=== PATIENT | female | born 1965 | race Caucasian/White ===

== ENCOUNTER → 2018-01-25 11:49 | Outpatient (REF) | payer OTHER, SELFPAY ==
[2018-01-25 14:35] LABS: Basophils # 0.1 K/mm3 (0-0.2); Basophils % 0.7 % (0.1-2.0); Eosinophils # 0.2 K/mm3 (0.0-0.4); Eosinophils % 2.4 % (0.1-12.0); Hemoglobin 12.2 g/dL (12.2-16.2); Lymphocytes # 2.9 K/mm3 (0.7-4.5); Lymphocytes % 44.7 K/mm3 (10-50); Mean Corpuscular HGB Conc 32.2 g/dL (31.8-35.4); Mean Corpuscular Hemoglobin 29.2 pg (27.0-31.2); Mean Corpuscular Volume 90.7 fl (81-99); Mean Platelet Volume 7.8 fl (7.4-10.4); Monocytes # 0.3 K/mm3 (0.1-1.0); Neutrophils # 3.1 K/mm3 (1.8-7.8); Neutrophils % 47.3 % (37.0-80.0); Platelet Count 354 K/mm3 (142-424); Red Blood Count 4.19 M/mm3 (4.20-5.40); Red Cell Distribution Width 12.6 % (11.5-17.5); White Blood Count 6.6 K/mm3 (4.8-10.8)
[2018-01-25 15:20] LABS: Alanine Aminotransferase 25 U/L (12-78); Albumin Level 3.6 gm/dL (3.4-5.0); Albumin/Globulin Ratio 0.9 (1.1-1.8); Alkaline Phosphatase 82 U/L (46-116); Aspartate Amino Transferase 17 U/L (15-37); Bilirubin,Total 0.4 mg/dL (0.2-1.0); Blood Urea Nitrogen 9 mg/dL (7-18); Calcium 8.8 mg/dL (8.5-10.1); Carbon Dioxide 29 mmol/L (21.0-32.0); Chloride 104 mmol/L (98-107); Chol/HDL Ratio 2.8 (1-3.5); Cholesterol 204 mg/dL (140-200); Creatinine,Serum 0.66 mg/dL (0.55-1.02); Estimated Glomerular Filt Rate 94 ml/min (>60); GFR (African American) 114 ML/MIN (>60); Globulin 3.8 gm/dl (1.3-3.2); Glucose 98 mg/dL (74-106); HDL Cholesterol 72 mg/dL (29-89); LDL Cholesterol 118 mg/dL (0-130); Sodium 139 mmol/L (136-145); T4 (Thyroxine) 8.6 ug/dl (4.7-13.3); Thyroid Stimulating Hormone 1.77 uIU/ml (0.358-3.740); Total Protein,Serum 7.4 gm/dL (6.4-8.2); Triglycerides 69 mg/dL (30-200); VLDL Cholesterol 14 mg/dL (0-40)
[2018-01-26 10:17] LABS: Vitamin D 25 Hydroxy 42.6 ng/mL (30.0-100.0)
== END ==
LOC: LAB 11:49
PROVIDERS: PCP Nurse Practitioner Family; Visit Provider Nurse Practitioner Family
DX: I10 Essential (primary) hypertension (principal); R53.83 Other fatigue
CPT/HCPCS: 80053; 80061; 82652; 84436; 84443; 85025

== ENCOUNTER → 2018-02-01 16:01 | Outpatient (CLI) | payer OTHER, SELFPAY ==
--- NOTE | 2018-02-01 16:05 | XR_ITS ---
EXAM: XR cervical spine 5V HISTORY: ITS.REASON: neck pain ORDERING PHYSICIAN: MYKE Charles PATIENT AGE: 52 years COMPARISON: None FINDINGS: Normal alignment. No fracture or dislocation. No lytic or blastic change. No significant degenerative change. The disc spaces are preserved. The neural foramina are widely patent. No cervical rib. There is mild head tilt toward the right on the frontal view IMPRESSION: Mild head tilt toward the right on the frontal view nonspecific and may be due to position or could be due to some mild muscle spasm Otherwise negative cervical spine
== END ==
PROVIDERS: PCP Nurse Practitioner Family; Visit Provider Physician Assistant
DX: M54.2 Cervicalgia (principal); M79.601 Pain in right arm; M79.602 Pain in left arm
CPT/HCPCS: 72050

== ENCOUNTER → 2018-02-08 08:13 | Outpatient (CLI) | payer OTHER, SELFPAY ==
--- NOTE | 2018-02-08 08:15 | CA_ITS ---
PROCEDURE: 2-D M-mode and color Doppler study INDICATIONS FOR THE TEST: Chest pain+ COPD Heart Murmur Tobacco Smoking Palpitations+ Fatigue+ Syncope Edema+ Hypertension+Diabetes Mellitus Rheumatic Fever SOB+ORTIZ Obesity Hyperlipidemia Family History HD+ Additional History PATIENT INFORMATION HEIGHT: 63 WEIGHT: 149 GENDER: Female B/P: 149/88 2-D/M-MODE INTERPRETATION: 2-D MEASUREMENTS OBSERVED VALUES IN CMS Right Ventricular Dimension (RVDd) 2.8 Interventricular Septum (Thickness)(IVsd) 0.8 Left Ventricular Internal Dimensions(LVIDd) 4.2 Left Ventricular Posterior Wall (Thickness)(LVPWd) 0.8 Aortic Root 2.9 Aortic Cusp Separation 2.1 Left Atrial Dimensions (LAD) 3.4 2D 1. Left atrium is mildly enlarged, left ventricle is normal size, mild concentric left ventricular hypertrophy, visually estimated ejection fraction 55% with no regional wall motion abnormality. 2. The right atrium and right ventricle are normal size and contractility. 3. The aortic valve is minimally thickened fibrosed. 4. The mitral and tricuspid valvular grossly normal. 5. The pulmonic valve is poorly visualized. 6. No significant pericardial effusion noted. DOPPLER INTERROGATION: Doppler interrogation of the aortic, mitral and tricuspid valvular presence of mild mitral and tricuspid regurgitation, tricuspid regurgitant jet velocity is inadequate for calculation of the right ventricular systolic pressure, grade 1 diastolic dysfunction seen with tissue Doppler evidence of raised left atrial pressure. CONCLUSION: 1. Mildly enlarged left atrium, normal left ventricular size, mild concentric left ventricular hypertrophy, visually estimated ejection fraction 55% with no regional wall motion abnormality, grade 1 diastolic dysfunction seen with tissue Doppler evidence of raised left atrial pressure. 2. Mild mitral and tricuspid regurgitation 3. No significant pericardial effusion noted.
== END ==
PROVIDERS: PCP Emergency Medicine; Visit Provider Internal Medicine
DX: I20.8 Other forms of angina pectoris (principal); R06.09 Other forms of dyspnea; Z82.49 Family history of ischemic heart disease and other diseases of the circulatory system
CPT/HCPCS: 93017; 93306

== ENCOUNTER → 2018-06-08 12:58 | Outpatient (CLI) | payer OTHER, SELFPAY ==
--- NOTE | 2018-06-08 13:00 | NVE_ITS ---
Venous Exam Indications: 729.81 Swelling of limb. 729.5 Pain in limb. IMPRESSIONS 1. There is no evidence of significant Reflux. 2. No evidence of deep or superficial vein thrombosis involving the right lower extremity Right lower extremity venous duplex evaluation. Doppler flow study including spectral analysis, color and membreno scale imaging. Location: Vascular laboratory. Patient status: Outpatient. Tables: Venous flow and imaging: + +-------+ + Location Overall Flow properties + +-------+ + Right common femoral Patent Normal phasicity; spontaneous; normal augmentation; compressible + +-------+ + Right saphenofemoral junction Patent Compressible + +-------+ + Right profunda femoral Patent Compressible + +-------+ + Right femoral Patent Normal phasicity; spontaneous; normal augmentation; compressible + +-------+ + Right greater saphenous Patent Normal phasicity; spontaneous; normal augmentation; compressible + +-------+ + Right popliteal Patent Normal phasicity; spontaneous; normal augmentation; compressible + +-------+ + Right posterior tibial Patent Compressible + +-------+ + Right peroneal Patent Compressible + +-------+ + Right gastrocnemius Patent Compressible + +-------+ + Right soleal Patent Compressible + +-------+ + (Report amended ) Electronically signed by: Elver Patton [id number]
== END ==
PROVIDERS: PCP Nurse Practitioner Family; Visit Provider Nurse Practitioner Family
DX: M79.89 Other specified soft tissue disorders (principal); M79.661 Pain in right lower leg
CPT/HCPCS: 93971

== ENCOUNTER → 2018-12-01 10:16 | Outpatient (CLI) | payer OTHER, SELFPAY ==
[2018-12-01 10:36] LABS: Basophils # 0.1 K/mm3 (0-0.2); Basophils % 0.7 % (0.1-2.0); Eosinophils # 0.2 K/mm3 (0.0-0.4); Eosinophils % 2.9 % (0.1-12.0); Hematocrit 40.4 % (37.0-47.0); Lymphocytes # 3.3 K/mm3 (0.7-4.5); Lymphocytes % 49.1 % (10-50); Mean Corpuscular HGB Conc 32.2 g/dL (31.8-35.4); Mean Corpuscular Hemoglobin 29.6 pg (27.0-31.2); Mean Corpuscular Volume 91.7 fl (81-99); Mean Platelet Volume 6.5 fl (7.4-10.4); Monocytes # 0.4 K/mm3 (0.1-1.0); Monocytes % 5.1 % (1.7-9.3); Neutrophils # 2.9 K/mm3 (1.8-7.8); Neutrophils % 42.3 % (37.0-80.0); Platelet Count 347 K/mm3 (142-424); Red Cell Distribution Width 12.2 % (11.5-17.5); White Blood Count 6.8 K/mm3 (4.8-10.8)
[2018-12-01 11:55] LABS: Alanine Aminotransferase 35 U/L (12-78); Albumin Level 3.7 gm/dL (3.4-5.0); Alkaline Phosphatase 75 U/L (46-116); Anion Gap 11.3 mEq/L (5-15); Aspartate Amino Transferase 23 U/L (15-37); Bilirubin,Direct 0.1 mg/dL (0.0-0.2); Bilirubin,Indirect 0.4 mg/dL (0.0-0.9); Bilirubin,Total 0.5 mg/dL (0.2-1.0); Blood Urea Nitrogen 11 mg/dL (7-18); Calcium 9.2 mg/dL (8.5-10.1); Carbon Dioxide 29 mmol/L (21.0-32.0); Chloride 104 mmol/L (98-107); Chol/HDL Ratio 3.3 (1-3.5); Cholesterol 221 mg/dL (140-200); Creatinine,Serum 0.63 mg/dL (0.55-1.02); Estimated Glomerular Filt Rate 99 ml/min (>60); Free T4 (Free Thyroxine) 0.88 ng/dl (0.76-1.46); GFR (African American) 120 ML/MIN (>60); Glucose 97 mg/dL (74-106); HDL Cholesterol 66 mg/dL (29-89); LDL Cholesterol 143 mg/dL (0-130); Potassium 4.3 mmoL/L (3.5-5.1); Sodium 140 mmol/L (136-145); Thyroid Stimulating Hormone 1.44 uIU/ml (0.358-3.740); Total Protein,Serum 7.3 gm/dL (6.4-8.2); Triglycerides 58 mg/dL (30-200); VLDL Cholesterol 12 mg/dL (0-40)
== END ==
PROVIDERS: Visit Provider Physician Assistant
DX: R00.1 Bradycardia, unspecified (principal); R00.2 Palpitations; R07.89 Other chest pain
CPT/HCPCS: 36415; 80048; 80061; 80076; 84439; 84443; 85025

== ENCOUNTER → 2018-12-22 17:08 | Outpatient (CLI) | payer OTHER, SELFPAY ==
--- NOTE | 2018-12-22 17:13 | XR_ITS ---
PROCEDURE: XR CHEST 2V CLINICAL HISTORY: ribs pain Left-sided chest pain COMPARISON: CXR CHEST(2 VIEWS-NOT PORTABLE) from 03/08/2017 FINDINGS: The cardiomediastinal silhouette and pulmonary vascularity are within normal limits. The lungs are clear without infiltrates, suspicious nodules, or pleural effusions. No acute bony abnormalities. IMPRESSION: No acute findings. Dictated by: Elver Patton MD 12/22/2018 21:40 Electronically signed by Elver Patton MD in [facility] 12/22/2018 21:40
--- NOTE | 2018-12-22 17:13 | XR_ITS ---
PROCEDURE: XR SCAPULA LT CLINICAL INDICATION: fall Posttraumatic pain COMPARISON: No exams were available for comparison FINDINGS: No fracture, dislocation, lytic change, or blastic change evident. No significant degenerative change IMPRESSION: No acute findings. Dictated by: Elver Patton MD 12/23/2018 06:05 Electronically signed by Elver Patton MD in [facility] 12/23/2018 06:05
--- NOTE | 2018-12-22 17:13 | XR_ITS ---
PROCEDURE: XR RIBS LT MIN 3V W CXR1V CLINICAL INDICATION: fall Posttraumatic pain COMPARISON: CXR CHEST(2 VIEWS-NOT PORTABLE) from 03/08/2017 XR CHEST 2V from 12/22/2018 FINDINGS: Mild lower thoracic curvature convex left and lumbar curvature convex right. No acute displaced fracture. No lytic or blastic change. IMPRESSION: Negative left ribs. If pain persists, consider follow-up exam in 7-[address] with 3D reformats Dictated by: Elver Patton MD 12/23/2018 06:07 Electronically signed by Elver Patton MD in [facility] 12/23/2018 06:07
== END ==
PROVIDERS: PCP Nurse Practitioner Family; Visit Provider Nurse Practitioner Family
DX: R07.81 Pleurodynia (principal); W19.XXXA Unspecified fall, initial encounter
CPT/HCPCS: 71046; 71101; 73010

== ENCOUNTER 2020-01-12 19:53 | Emergency (ER) | payer OTHER, SELFPAY ==
[2020-01-12 19:54] VITALS: PULSE 63; RESP 16; O2SAT 97; BMI 23.9
--- NOTE | 2020-01-12 20:21 | CT_ITS ---
PROCEDURE: CT HEAD/BRAIN WO CON CLINICAL INDICATION: headache Hit in head with treadmill. No LOC. c/o right sided headache. COMPARISON: No exams were available for comparison TECHNIQUE: Axial images obtained. All CT scans at the facility use one or more dose reduction, viz: automated exposure control, ma/kV adjustment per patient size (including targeted exams where dose is matched to indication, i.e. head), or iterative reconstruction technique. FINDINGS: No midline shift, mass effect, intracranial hemorrhage, hydrocephalus, or extra-axial fluid collection is evident. The calvarium has an unremarkable appearance. No mastoid effusion. No sinus air-fluid level. IMPRESSION: No acute intracranial finding Dictated by: Elver Patton MD 01/13/2020 01:22 Elver Patton MD in [facility] 01/13/2020 07:57
--- NOTE | 2020-01-12 20:22 | CT_ITS ---
PROCEDURE: CT CERVICAL SPINE WO CON CLINICAL INDICATION: headache Neck injury with pain, contusion/abrasion or hematoma, cervical sprain/strain the Hit in head with treadmill. No LOC. c/o right sided headache. COMPARISON: No exams were available for comparison TECHNIQUE: Axial images obtained with sagittal and coronal reformats. All CT scans at the facility use one or more dose reduction, viz: automated exposure control, ma/kV adjustment per patient size (including targeted exams where dose is matched to indication, i.e. head), or iterative reconstruction technique. Axial spiral CT scanning performed of the cervical spine beginning at the base of the skull and continuing to the upper T-spine. 3-D multiplanar reconstruction with 3-D manipulation of volumetric data set in image rendering was completed by the radiologist and/or technologist with the supervision of the radiologist on independent workstation. FINDINGS: Alignment. No fracture or dislocation. There is straightening/reversal of the normal lordosis which may be due to patient positioning or muscle spasm.. Mild multilevel cervical spondylosis with no bony canal stenosis. Lung apices are clear. There are few scattered small nodes within the neck. IMPRESSION: Cervical spine intact with no fracture nor subluxation. Dictated by: Elver Patton MD 01/13/2020 07:59 Elver Patton MD in [facility] 01/13/2020 07:59
[2020-01-12 20:26] LABS: Microscopic, Urine URINE MICROSCOPIC (MICROSCOPIC)
[2020-01-12 20:27] LABS: Appearance,Urine CLEAR (Clear); Bilirubin,Urine Negative (Negative); Blood, Urine Negative (Negative); Color,Urine YELLOW (Yellow); Glucose,Urine (UA) Negative (Negative); Ketones,Urine Negative (Negative); Leukocyte Esterase,Urine Negative (Negative); Nitrate,Urine Negative (Negative); PH,Urine 5.5 (5.0-8.5); Protein,Urine Negative (Negative); Specific Gravity, Urine >= 1.030 (1.005-1.030); Urobilinogen,Urine 0.2 EU/dl (0.2)
--- NOTE | 2020-01-12 21:21 | HMH.EDGENADL ---
ED Disposition Clinical Impression: Head contusion Qualifiers: Encounter type: initial encounter Contusion of head detail: scalp Qualified Code(s): S00.03XA - Contusion of scalp, initial encounter Disposition: Home, Self-Care Condition on Discharge: Good Instructions: DI for Post-traumatic Headache Additional Instructions: see pcp as needed Referrals: Steff Ellis APRN [Primary Care Provider] - - Critical Care Critical Care Time: No Attestation: On 01/12/20, the high probability of a clinically significant, sudden or life threatening deterioration of the following system(s) required my full and direct attention, intervention and personal management. The time I documented below is in addition to time spent performing reported procedures but includes the following listed in this critical care notation. Medical Decision Making - Medical Records Medical records reviewed: Yes: I reviewed the patient's medical records. - Elio Inquiry Pt receiving controlled substance: No Vital Signs: 01/12/20 19:54 Pulse Rate [Left Radial] 63 Respiratory Rate 16 Blood Pressure Source [Right Arm] Automatic Cuff Blood Pressure Position [Right Arm] Supine 02 Sat by Pulse Oximetry 97 - Lab Data Lab results reviewed: Yes: I reviewed the patient's lab results. Lab Results 01/12/20 20:05: Urine Color Yellow, Urine Appearance Clear, Urine pH 5.5, Ur Specific Arabi >= 1.030, Urine Protein Negative, Urine Glucose (UA) Negative, Urine Ketones Negative, Urine Blood Negative, Urine Nitrate Negative, Urine Bilirubin Negative, Urine Urobilinogen 0.2, Ur Leukocyte Esterase Negative, Urine WBC 10-20 Orders (Tests/Meds): ORDERS Category Date Time Status CT cervical spine wo con Stat Cat Scan 01/12/20 20:[address] head/brain wo con Stat Cat Scan 01/12/20 20:21 Taken Urine Culture Stat Micro 01/12/20 20:05 Received - CT Data CT Scan: Head, C-Spine Time Received: 21:[address] Reviewed: Yes: I have viewed the radiologist's interpretation Preliminary Findings: No Fracture Seen General Adult HPI - General Chief complaint: PAIN Stated complaint: AO [id number] @1900 injury to head Time Seen by Provider: 01/12/20 20:10 Mode of Arrival: Ambulatory Source of Information: Patient, Medical Record Limitations: No Limitations Description of Symptoms (Recalled from ER Triage Doc. by RN): Pt was cleaning under treadmill when it fell striking her head. Pt c/o headache currently w/ no report of LOC. No laceration present. Pt points to right temporal area when asking where it struck her. Redness to area present. - History of Present Illness HPI narrative: pt hit in rt side of head tonight with threadmill- [place] but no loc Onset (ago): hour(s) Location: head, neck Severity: moderate Associated symptoms: denies other symptoms Treatments prior to arrival: none - Related Data Home Medications Medication Instructions Recorded Confirmed hydrocodone 10 mg-acetaminophen 1 tab PO Q6 PRN 30 Days #120 tab 01/25/18 01/12/20 325 mg tablet vitamin B complex 1 tab PO DAILY 01/25/18 01/12/20 cyclobenzaprine 10 mg tablet 10 mg PO TID PRN 02/15/18 01/12/20 ascorbic acid (vitamin C) 500 mg 500 mg PO ONCE cap 06/07/18 01/12/20 capsule Previous Rx's Medication Instructions Recorded bisoprolol fumarate 5 mg tablet 5 mg PO DAILY #30 tab 11/05/19 Allergies Allergy/AdvReac Type Severity Reaction Status Date / Time amoxicillin [AMOXICILLIN] Allergy Unknown Verified 09/19/19 14:37 Penicillins [PENICILLINS] Allergy Unknown Verified 09/19/19 14:37 [facility] History - Hepatitis A Screen Drug use history?: No High risk sexual behaviors?: No History of sexually transmitted infection?: No Currently employed?: No Childcare worker?: No Do you have indoor plumbing?: Yes Do you have electricity?: Yes Attestation statement:: This patient has been screened for Hepatitis A risk factors. I have reviewed the patient's past
[2020-01-12 21:31] VITALS: BP 142/74; PULSE 66; RESP 16; TEMP 36.4; O2SAT 98
== END 2020-01-12 21:32 | disposition home or self-care (01) ==
PROVIDERS: Emergency Provider Emergency Medicine; PCP Nurse Practitioner Family
DX: S00.03XA Contusion of scalp, initial encounter (principal); W22.8XXA Striking against or struck by other objects, initial encounter; Y92.019 Unspecified place in single-family (private) house as the place of occurrence of the external cause; I10 Essential (primary) hypertension; Z87.442 Personal history of urinary calculi; Z88.0 Allergy status to penicillin; Z79.899 Other long term (current) drug therapy
CPT/HCPCS: 70450; 72125; 81001; 87086; 99282

== ENCOUNTER 2021-09-26 23:37 | Day surgery (SDC) | payer OTHER, SELFPAY ==
[2021-09-26 23:38] VITALS: BP 147/102; PULSE 84; RESP 18; TEMP 36.8; O2SAT 98; BMI 26.0
[2021-09-26 23:46] LABS: Coronavirus 19, PCR Not Detected (NotDetected); Influenza A, PCR Not Detected (NotDetected); Influenza B, PCR Not Detected (NotDetected)
--- NOTE | 2021-09-26 23:55 | PC.NURSE ---
Paged Dr. Penn
--- NOTE | 2021-09-26 23:56 | XR_ITS ---
PROCEDURE INFORMATION: Exam: XR Chest Exam date and time: 09/26/2021 11:56 PM Age: 56 years old Clinical indication: Cough and other: Piece of chicken stuck in throat; Additional info: Foreign body and SOA TECHNIQUE: Imaging protocol: Radiologic exam of the chest. Views: 1 view. COMPARISON: CR XR RIBS LT MIN 3V W CXR1V 12/22/2018 5:11 PM FINDINGS: Lungs: Unremarkable. No consolidation. Pleural spaces: Unremarkable. No pleural effusion. No pneumothorax. Heart/Mediastinum: Unremarkable. No cardiomegaly. Bones/joints: Unremarkable. IMPRESSION: No acute cardiopulmonary findings.
--- NOTE | 2021-09-26 23:56 | PC.NURSE ---
KARIS Rodriguez speaking with Isamar
--- NOTE | 2021-09-26 23:57 | ECG_ITS ---
APPROVED REPORT Exam: Resting ECG HR:65 bpm ECG Measurements Heart Rate 65 AXES NJ 171 P 16 QRSd 86 QRS 63 QT 389 T 59 QTc 401 Conclusion SINUS RHYTHM NORMAL ECG UNCONFIRMED REPORT Electronically signed by : Javi Chun MD 09/27/2021 18:42:14
[2021-09-27] VITALS (7 sets, daily range): BP systolic 71–147; BP diastolic 42–102; PULSE 61–84; RESP 10–17; TEMP 36.4–36.8; O2SAT 92–100
--- NOTE | 2021-09-27 00:18 | HMH.EDSKAF ---
ED Disposition Clinical Impression: Esophageal obstruction due to food impaction Esophageal foreign body Qualifiers: Encounter type: initial encounter Qualified Code(s): T18.108A - Unspecified foreign body in esophagus causing other injury, initial encounter Disposition: Home, Self-Care Condition on Discharge: Good Referrals: Steff Ellis APRN [Primary Care Provider] - - Critical Care Critical Care Time: No Attestation: On 09/26/21, the high probability of a clinically significant, sudden or life threatening deterioration of the following system(s) required my full and direct attention, intervention and personal management. The time I documented below is in addition to time spent performing reported procedures but includes the following listed in this critical care notation. Medical Decision Making - Medical Records Medical records reviewed: Yes: I reviewed the patient's medical records. - Elio Inquiry Pt receiving controlled substance: No Vital Signs: 09/26/21 23:38 Temperature 98.3 F Temperature Source Oral Pulse Rate [Left] 84 Respiratory Rate 18 Blood Pressure [Right Arm] 147/102 H Blood Pressure Mean [Right Arm] 117 02 Sat by Pulse Oximetry 98 Oxygen Delivery Method Room Air - Lab Data Lab results reviewed: Yes: I reviewed the patient's lab results. Orders (Tests/Meds): ORDERS Category Date Time Status Portable CXR [XR chest portable] Stat Exams 09/26/21 23:56 Taken Basic Metabolic Panel Stat Lab 09/26/21 00:00 Received Complete Blood Count Auto Diff Stat Lab 09/26/21 23:57 Received Liver Panel Stat Lab 09/26/21 00:00 Received Rapid PCR Covid and Flu A/B Stat Lab 09/26/21 23:42 Received - Radiology Data #1 Image(s): Chest Image Reviewed: Yes I reviewed the patient's radiology image Preliminary Findings: Normal/NAD - ECG Data Tracing #1 Normal Sinus Rhythm: Yes Ischemic changes: non-specific ST-T wave changes - Physician Consults Physician Consulted: [email or web address] Reason -: Pt condition Medical Decision Narrative: has lodged esophageal fb and will be seen by dr jansen for intervention Skin/Abscess/FB HPI - General Chief complaint: Skin/Abscess/Foreign Body Stated complaint: Chicken stuck in throat Time Seen by Provider: 09/27/21 00:00 Mode of Arrival: Ambulatory Source of Information: Patient, Spouse, Medical Record Limitations: No Limitations Description of Symptoms (Recalled from ER Triage Doc. by RN): pt took a bite of grilled chicken and it got lodged in her throat. pt states she knew immediatly because this happend years ago in [place]. - History of Present Illness HPI narrative: 4 hrs ago has esophageal fb - prev lodged fb about 5 yrs ago MD complaint: foreign body Onset (ago): hour(s) Severity: moderate Associated symptoms: denies other symptoms Treatments prior to arrival: none - Related Data Home Medications Medication Instructions Recorded Confirmed hydrocodone 10 mg-acetaminophen 1 tab PO Q6 PRN 30 Days #120 tab 01/25/18 07/29/20 325 mg tablet vitamin B complex 1 tab PO DAILY 01/25/18 07/29/20 cyclobenzaprine 10 mg tablet 10 mg PO TID PRN 02/15/18 07/29/20 ascorbic acid (vitamin C) 500 mg 500 mg PO ONCE cap 06/07/18 07/29/20 capsule Previous Rx's Medication Instructions Recorded bisoprolol fumarate 5 mg tablet 5 mg PO DAILY #90 tab 07/21/21 Allergies Allergy/AdvReac Type Severity Reaction Status Date / Time amoxicillin [AMOXICILLIN] Allergy Unknown Verified 07/29/20 14:27 Penicillins [PENICILLINS] Allergy Unknown Verified 07/29/20 14:27 [facility] History - Hepatitis A Screen Attestation statement:: This patient has been screened for Hepatitis A risk factors. I have reviewed the patient's past medical history: Yes Medical History: Reports:: Hypertension, Kidney Stones Denies:: Cancer, Diabetes Mellitus Type 1, Diabetes Mellitus Type 2, Hyperlipidemia, Internal Pacemaker, MRSA, Seizures, Urinary
[2021-09-27 00:24] LABS: Basophils # 0.2 K/mm3 (0-0.2); Basophils % 1.4 % (0.1-2.0); Eosinophils # 0.1 K/mm3 (0.0-0.4); Eosinophils % 1.3 % (0.1-12.0); Hematocrit 41.4 % (37.0-47.0); Hemoglobin 14.1 g/dL (12.2-16.2); Lymphocytes # 1.7 K/mm3 (0.7-4.5); Lymphocytes % 15.7 % (10-50); Mean Corpuscular Hemoglobin 30.7 pg (27.0-31.2); Mean Corpuscular Volume 90.4 fl (81-99); Mean Platelet Volume 7.5 fl (7.4-10.4); Monocytes # 0.5 K/mm3 (0.1-1.0); Monocytes % 4.4 % (1.7-9.3); Neutrophils # 8.2 K/mm3 (1.8-7.8); Neutrophils % 77.1 % (37.0-80.0); Platelet Count 353 K/mm3 (142-424); Red Blood Count 4.58 M/mm3 (4.20-5.40); Red Cell Distribution Width 12.7 % (11.5-17.5); White Blood Count 10.7 K/mm3 (4.8-10.8)
--- NOTE | 2021-09-27 00:25 | PC.NURSE ---
Surgery team paged at [address] Penn. David returned call at 0016. Jojo returned call at 0017. Janelle returned call at 0017.
[2021-09-27 00:30] LABS: Alanine Aminotransferase 25 U/L (12-78); Albumin Level 4.6 g/dl (3.5-5.0); Alkaline Phosphatase 93 U/L (38-126); Anion Gap 12.8 mEq/L (5-15); Aspartate Amino Transferase 36 U/L (14-36); Bilirubin,Indirect 0.3 mg/dL (0.0-0.9); Bilirubin,Total 0.3 mg/dl (0.2-1.3); Bilirubin,Unconjugated 0.6 mg/dL (0.0-1.1); Blood Urea Nitrogen 13 mg/dl (7-17); Calcium 9.6 mg/dl (8.4-10.2); Carbon Dioxide 28 mmol/L (22.0-30.0); Chloride 103 mmol/L (98-107); Creatinine Clearance Estimated 94 mL/min (50-200); Estimated Glomerular Filt Rate 87 ml/min (>60); GFR (African American) 105 ML/MIN (>60); Glucose 125 mg/dl (74-100); Potassium 3.8 mmoL/L (3.5-5.1); Sodium 140 mmol/L (136-145); Total Protein,Serum 8.1 g/dl (6.3-8.2)
--- NOTE | 2021-09-27 00:39 | HMH.GSHP ---
HPI HPI: 56-year-old female who resides in [facility] with previous history of esophageal food impaction 5 years ago when she was traveling in [place] requiring emergent EGD. She had been eating meat approximately 7 PM on 09/26/2021. It became lodged. It persisted. She has been unable to swallow her secretions and has had symptoms consistent with esophageal obstruction secondary to food impaction. She presented to the emergency department and surgical consultation was obtained. [facility] History I have reviewed the patient's past medical history: Yes Medical History: Reports:: Hypertension, Kidney Stones Denies:: Cancer, Diabetes Mellitus Type 1, Diabetes Mellitus Type 2, Hyperlipidemia, Internal Pacemaker, MRSA, Seizures, Urinary Tract Infection *Have you ever received a pneumonia vaccine?: No *Have you received a flu vaccine this season?: Yes Other Medical History: Reports: Arthritis Other Surgeries: Yes: , EGD. No: Pacemaker Amputation: No Fractures: No - *Social History Smoking Status: Never smoker Alcohol Intake: never Alcohol Intake Frequency:: holidays/special occasions only Substance Use Type: denies use *Occupational Status:: employed Housing: house *Travel in the last 8 weeks: None Family Hx:: Cancer, Coronary Artery Disease, Diabetes, Hypertension, Thyroid Disorder Review of Systems - Review of Systems Review of systems:: pertinent systems reviewed and negative unless documented below - *Neurologic Denies seizure-like activity Meds Home Medications Medication Instructions Recorded Confirmed Type hydrocodone 10 mg-acetaminophen 1 tab PO Q6 PRN 30 Days #120 tab 01/25/18 07/29/20 History 325 mg tablet vitamin B complex 1 tab PO DAILY 01/25/18 07/29/20 History cyclobenzaprine 10 mg tablet 10 mg PO TID PRN 02/15/18 07/29/20 History ascorbic acid (vitamin C) 500 mg 500 mg PO ONCE cap 06/07/18 07/29/20 History capsule bisoprolol fumarate 5 mg tablet 5 mg PO DAILY #90 tab 07/21/21 Rx Allergies Allergy/AdvReac Type Severity Reaction Status Date / Time amoxicillin [AMOXICILLIN] Allergy Unknown Verified 07/29/20 14:27 Penicillins [PENICILLINS] Allergy Unknown Verified 07/29/20 14:27 Exam Vital signs and Labs for Last 24 Hours: Temp Pulse Resp BP Pulse Ox 98.3 F 84 18 147/102 H 98 09/26/21 23:38 09/26/21 23:38 09/26/21 23:38 09/26/21 23:38 09/26/21 23:38 Laboratory Results - last 24 hr 09/26/21 23:42: SARS-CoV-2 (PCR) Not detected, Influenza A Untype (PCR) Not detected, Influenza Type B (PCR) Not detected 09/27/21 00:01: WBC 10.7, RBC 4.58, Hgb 14.1, Hct 41.4, MCV 90.4, MCH 30.7, MCHC 34.0, RDW 12.7, Plt Count 353, MPV 7.5, Neut % (Auto) 77.1, Lymph % (Auto) 15.7, [place] % (Auto) 4.4, Eos % (Auto) 1.3, Baso % (Auto) 1.4, Neut # (Auto) 8.2 H, Lymph # (Auto) 1.7, [place] # (Auto) 0.5, Eos # (Auto) 0.1, Baso # (Auto) 0.2 09/27/21 00:01: Sodium 140, Potassium 3.8, Chloride 103, Carbon Dioxide 28, Anion Gap 12.8, BUN 13, Creatinine 0.70, Estimated Creat Clear 94, Estimated GFR 87, Est GFR ( Amer) 105, Glucose 125 H, Calcium 9.6, Total Bilirubin 0.3, Direct Bilirubin 0.0, Conjugated Bilirubin 0.0, Indirect Bilirubin 0.3, Unconjugated Bilirubin 0.6, AST 36, ALT 25, Alkaline Phosphatase 93, Total Protein 8.1, Albumin 4.6 I & O for Last 24 hours: Intake & Output 09/24/21 09/25/21 09/26/21 09/27/21 11:59 11:59 11:59 11:59 Weight 147 lb - Constitutional no acute distress - *Routine HEENT Exam Head: Present: normocephalic Eye: Present: EOMI, PERRL ENT: Present: mucous membranes moist - *Routine Neck Exam Present: supple. Absent: lymphadenopathy - *Routine Respiratory Exam Present: CTA bilaterally - *Routine Cardiovascular Exam Present: RRR - *Routine Abdominal Exam Present: soft, normoactive bowel sounds. Absent: tenderness - *Routine Rectal Exam Rectal:: deferred - *Routine Genitalia Exam Genitalia:: deferred - *Routine Extremities Exam
--- NOTE | 2021-09-27 02:05 | P.PCN_ITS ---
- Procedure: Date: 09/27/21 Patient Date of :: 1965 Procedure Performed:: Esophagogastroduodenoscopy with retrieval foreign body food impaction Indications:: 56-year-old female who resides in [facility]. She works at [employer]. She has a previous history of esophageal food impaction 5 years ago when she was traveling in [place] requiring emergent EGD. She had been eating chicken approximately 7 PM on 09/26/2021. It became lodged. It persisted. She has been unable to swallow her secretions and has had symptoms consistent with esophageal obstruction secondary to food impaction. She presented to the emergency department and surgical consultation was obtained. Performing Provider:: Rosas Penn MD Referring Provider:: Bryan Avila Sedation:: MAC sedation Procedure:: Patient was taken to endoscopy procedure room in the [employer] hours of 09/27/2021. She was positioned in the lateral decubitus position. Adequate intravenous sedation was achieved with anesthesia titration propofol. Olympus endoscope was inserted via the oropharynx. Esophagus was cannulated. There were findings suggestive of diffuse esophageal spasm and esophageal dysmotility. Esophageal obstruction secondary to food impaction was encountered at approximately 30 cm from the incisors. With repeated use of the 3 prong Caesar grasping forceps and with some use of several Epps net as the food impaction was able to be extracted in a piecemeal fashion withdrawing the endoscope repeatedly extracting small portions of the food impaction. Ultimately after an appreciable amount of the food bolus have been extracted and had spontaneously advanced into the gastric lumen. The endoscope was able to be advanced into the stomach. There was some liquid and food matter present. The gastroesophageal junction was encountered at approximately 36 cm. There were findings of possible Valencia's esophagus but the visualization during endoscopy was somewhat limited due to the acute inflammation. Stomach was desufflated and the endoscope was withdrawn. Findings:: Esophageal obstruction secondary to food impaction at 30 cm Gastroesophageal junction at approximately 36 cm. 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 Recommendations:: Recommend [id number] Prilosec. She is to stay on a clear liquid diet for least 24 hours and then limited soft diet. Likely follow-up for EGD electively in several weeks for biopsies and potential dilatation if indicated. However, this appears to be potential esophageal dysmotility and possible esophageal spasm issue. Complications:: None immediately apparent Estimated blood obtained (mL): 1
--- NOTE | 2021-09-27 02:12 | HMH.ANESCL ---
[facility] Anesthesia Checklist - Structural Data Admitted From: Emergency Dept Planned Operative Procedure/s: egd Consent for Planned Operative Procedure(s) Verified: Yes - Airway Assessment C-Spine Mobility Assessed: Yes TMJ Mobility Assessed: Yes Dentition: Good Dentition - Neurological Assessment Level of Consciousness: Awake, Alert, Appropriate - Anesthesia Plan Anesthesia Risk discussed: Yes Anesthesia Plan: Verified ASA Class: II Anesthesia Type: MAC [facility] History I have reviewed the patient's past medical history: Yes Medical History: Reports:: Hypertension, Kidney Stones Denies:: Cancer, Diabetes Mellitus Type 1, Diabetes Mellitus Type 2, Hyperlipidemia, Internal Pacemaker, MRSA, Seizures, Urinary Tract Infection *Have you ever received a pneumonia vaccine?: No *Have you received a flu vaccine this season?: Yes Other Medical History: Reports: Arthritis Anesthesia experience/problems:: none Other Surgeries: Yes: , EGD. No: Pacemaker Amputation: No Fractures: No - *Social History Smoking Status: Never smoker Alcohol Intake: never Alcohol Intake Frequency:: holidays/special occasions only Substance Use Type: denies use *Occupational Status:: employed Housing: house *Travel in the last 8 weeks: None Family Hx:: Cancer, Coronary Artery Disease, Diabetes, Hypertension, Thyroid Disorder
== END 2021-09-27 02:55 | disposition home or self-care (01) ==
LOC: ER 09-27 00:28 → SDC 09-28 12:45
PROVIDERS: Surgery; PCP Nurse Practitioner Family; Visit Provider Emergency Medicine
PROC: 0DJ08ZZ Inspection of Upper Intestinal Tract, Via Natural or Artificial Opening Endoscopic (ICD-10-PCS; CPT 43235; principal; 2021-09-27 01:00)
DX: K22.2 Esophageal obstruction (principal); T18.128A Food in esophagus causing other injury, initial encounter; I10 Essential (primary) hypertension
CPT/HCPCS: 43247; 71045; 80048; 80076; 85025; 93005; C9803; U0003; U0005

== ENCOUNTER → 2022-01-06 15:29 | Outpatient (CLI) | payer OTHER, SELFPAY ==
--- NOTE | 2022-01-06 15:37 | XR_ITS ---
FINAL REPORT CLINICAL HISTORY: L sided abd pain x 2 weeks FINDINGS: ABDOMEN AP AND OBLIQUE/CONE VIEWS There is a nonspecific bowel gas pattern with numerous small air-fluid levels in large and small bowel. No free air is identified. There are tiny left pelvic calcifications compatible with phleboliths. IMPRESSION: Nonspecific bowel gas pattern. Reviewed, Interpreted and Dictated by Chapo Alaniz MD Transcribed by Katelyn Harding Authenticated and [facility]
== END ==
PROVIDERS: PCP Nurse Practitioner Family; Visit Provider Nurse Practitioner Family
DX: R10.9 Unspecified abdominal pain (principal)
CPT/HCPCS: 74019

== ENCOUNTER → 2022-01-12 09:58 | Outpatient (CLI) | payer OTHER, SELFPAY ==
--- NOTE | 2022-01-12 10:02 | MM_ITS ---
PROCEDURE INFORMATION: Exam: Bilateral Screening 3D Mammography Exam date and time: 01/12/2022 10:08 AM Age: 56 years old Clinical indication: Screening examination; Additional info: Possible mass lower left breast TECHNIQUE: Imaging protocol: Bilateral Screening tomosynthesis and 2D mammography including computer-aided detection (CAD) when performed. COMPARISON: No relevant prior studies available. FINDINGS: MAMMOGRAPHY: Breast composition: There are scattered areas of fibroglandular density. Mass: None. Architectural distortion: No new or suspicious architectural distortion. Calcifications: 0.8 cm mass within the upper outer posterior left breast with associated calcifications should be further assessed with spot magnification views in CC/ML projection. Ultrasound should also be performed. Asymmetric density: 2 cm focal asymmetry within the upper inner left middle 1/3 should be further assessed with spot views in CC/MLO projection. Ultrasound should also be performed. Skin thickening: None. Axillary adenopathy: None. IMPRESSION: 1. 2 cm focal asymmetry within the upper inner left middle 1/3 should be further assessed with spot views in CC/MLO projection. Ultrasound should also be performed. 2. 0.8 cm mass within the upper outer posterior left breast with associated calcifications should be further assessed with spot magnification views in CC/ML projection. Ultrasound should also be performed. ASSESSMENT: BI-RADS category 0: Incomplete-need additional imaging evaluation and/or prior mammograms for comparison.
== END ==
PROVIDERS: PCP Nurse Practitioner Family; Visit Provider Nurse Practitioner Family
DX: Z12.31 Encounter for screening mammogram for malignant neoplasm of breast (principal); N64.4 Mastodynia
CPT/HCPCS: 77063; 77067

== ENCOUNTER → 2022-01-18 14:33 | Outpatient (CLI) | payer OTHER, SELFPAY ==
--- NOTE | 2022-01-18 14:33 | US_ITS ---
PROCEDURE INFORMATION: Exam: US Left Breast, Complete MG Left Diagnostic Breast Tomosynthesis Exam date and time: 01/18/2022 3:15 PM Age: 56 years old Clinical indication: Recall on the basis of screening mammogram 01/12/2022 for further evaluation of 0.8 cm mass with calcifications in the upper outer posterior left breast, 2.0 cm focal asymmetry in the upper inner left breast middle 3rd and concern for palpable lump in the lower left breast. TECHNIQUE: Imaging protocol: Complete ultrasound of all four quadrants of the Left breast and the retroareolar regions, including ultrasound of the axilla when performed. Left Diagnostic tomosynthesis and 2D mammography including computer-aided detection (CAD) when performed. Unilateral or bilateral exam. No skin marker is provided to indicate a palpable finding. COMPARISON: 1. MG MM DIG SCREENING MAMM BI W/CAD 01/12/2022 10:08 AM 2. US BREAST LT COMPLETE 01/18/2022 2:51 PM FINDINGS: MAMMOGRAPHY: Diagnostic spot compression and magnification demonstrates: In the upper outer quadrant posterior 3rd, several groupings of calcifications, several lower punctate and several layer in a benign microcyst pattern - with no suspicious calcifications. In the upper inner quadrant, posterior 3rd less prominent asymmetry, best seen in the CC projection. ULTRASOUND: Left sonography, all 4 quadrants, retroareolar and axilla. Scattered sub cm complicated cysts noted at 2 o'clock 8 cm from the nipple measuring 0.4 x 0.5 x 0.3 cm, at 11 o'clock 8 cm from the nipple measuring 0.4 x 0.3 by 0.5 cm and 0.6 x 0.3 by 0.5 cm, at 2 o'clock 5 cm from nipple measuring 0.4 by 0.6 x 0.3 cm, and at 1 o'clock 8 cm from the nipple measuring 0.7 x 0.3 by 0.4 cm. No suspicious cystic or solid mass or sonographic non masslike finding is demonstrated. Sonographically unremarkable left axillary lymph node. No palpable finding is indicated on sonography. IMPRESSION: Probably benign mammographic findings and sub cm sonographic complicated cysts. Suggest six-month follow-up left diagnostic mammogram and targeted left breast ultrasound at 2, 11 o'clock and 1 o'clock, unless otherwise clinically indicated. Please note mention of a palpable lump - if concern for palpable finding, diagnostic mammography with triangular marker and focal targeted sonography are recommended. Further evaluation of a palpable abnormality should be based on clinical grounds regardless of radiographic findings or lack thereof. ASSESSMENT: BI-RADS Category 3: Probably benign
== END ==
PROVIDERS: PCP Nurse Practitioner Family; Visit Provider Nurse Practitioner Family
DX: N63.21 Unspecified lump in the left breast, upper outer quadrant (principal); N63.22 Unspecified lump in the left breast, upper inner quadrant
CPT/HCPCS: 76641; 77061; 77065; G0279

== ENCOUNTER → 2022-02-16 09:05 | Outpatient (CLI) | payer OTHER, SELFPAY ==
--- NOTE | 2022-02-16 09:05 | US_ITS ---
FINAL REPORT CLINICAL HISTORY: Abdomen pain FINDINGS: Sonographic images of the abdomen were obtained. The liver has an unremarkable appearance with normal echogenicity. There is a minimal amount of sludge the gallbladder with no evidence of gallstones. There is no evidence of biliary ductal dilatation. The common hepatic duct measures 3 mm, which is within normal limits. The pancreas is partially obscured. The spleen size is normal. The right kidney measures 9.6 cm in length. The left kidney measures 10.0 cm in length. There is normal renal echogenicity. There is no evidence of hydronephrosis. The aorta has an unremarkable appearance. Limited images of the inferior vena cava are unremarkable. IMPRESSION: Minimal sludge within the gallbladder without evidence of gallstones. Reviewed, Interpreted and Dictated by Leandro Tejada MD Transcribed by Bebe Mora Authenticated and [facility]
== END ==
PROVIDERS: PCP Nurse Practitioner Family; Visit Provider Nurse Practitioner Family
DX: R10.9 Unspecified abdominal pain (principal)
CPT/HCPCS: 76700

== ENCOUNTER 2022-06-22 19:16 | Emergency (ER) | payer OTHER, SELFPAY ==
[2022-06-22 20:00] VITALS: BP 156/80; PULSE 74; RESP 18; TEMP 36.8; O2SAT 98; BMI 26.3
--- NOTE | 2022-06-22 20:16 | EXP.UTC ---
Discharge Plan Disposition Patient Disposition: Home, Self-Care Condition: Good Prescriptions Prescriptions: New erythromycin 500 mg tablet 500 mg PO BID 10 Days Qty: 20 0RF benzonatate 100 mg capsule 100 mg PO TID PRN (Reason: cough) Qty: 30 0RF No Action hydrocodone-acetaminophen 10-325 mg tablet 1 tab PO Q6 PRN (Reason: pain) 30 Days Qty: 120 vitamin B complex [B Complex-Vitamin B12] tablet 1 tab PO DAILY cyclobenzaprine 10 mg tablet 10 mg PO TID PRN (Reason: pain) ascorbic acid (vitamin C) 500 mg capsule 500 mg PO ONCE bisoprolol fumarate 5 mg tablet See Rx Instructions .ROUTE .COMPLEX Qty: 90 5RF Dose Instruction: TAKE 1 TABLET BY MOUTH EVERY DAY FOR CARDIAC Rx Instructions: TAKE 1 TABLET BY MOUTH EVERY DAY FOR CARDIAC clonazepam [Klonopin] 0.5 mg tablet 0.5 mg PO BID Qty: 60 0RF Referrals Follow up/Referrals: Maurice Avila MD [Primary Care Provider] - See instructions Activity Restrictions/Add. Instructions Additional Instructions/Restrictions: *Monitor Temp, Over the counter Motrin or Tylenol as directed/as needed Tylenol every 4 hours and Motrin every 6 hours (as long as your family doctor has told you that you can take it) for fever or pain. and straight to ER if unable to lower temp less than 101.0 after medication given *Warm salt water gargles may help to soothe the throat *Throat Lozenges? *Warm fluids like tea with honey may help to soothe the throat? *Sleep elevated *Humidifier/Vaporizer *Flonase 2 sprays in each nostril daily but be aware that it may take 2-3 days before you notice improvement Take medication as prescribed Follow up IMMEDIATELY for new or worsening symptoms or no Noticeable improvement over the next 48-72 hours. 911 for difficulty breathing or swallowing Clinical Impressions Clinical Impression: Sinusitis Qualifiers: Sinusitis location: unspecified location Chronicity: unspecified Qualified Code(s): J32.9 - Chronic sinusitis, unspecified Instructions Patient Instructions: Sinusitis, DI for Sinusitis Discharge ED Provider: Sahara Curtis [facility] HPI General Stated complaint: Head Congestion,WEBER Cough Both ears Mode of Arrival: Ambulatory Source of Information: Patient Limitations: No Limitations Time Seen by Provider: 06/22/22 20:16 Description of Symptoms (Recalled from Triage Doc. by RN): PTAIENT C/O COUGH, HEADACHE, SINUS CONGESTION, RUNNY NOSE, EAR PAIN AND SCRATCHY THROAT SINCE YESTERDAY HEENT Symptoms (Recalled from RN notes): Yes Resp Symptoms (Recalled from RN notes): Yes Skin Symptoms (Recalled from RN notes): No MS Symptoms (Recalled from RN notes): No Functional Status (Recalled from RN notes): WNL History of Present Illness Provider Complaint: Patient states that she has been having sinus headache with sinus pain and pressure, sore scratchy throat, naggy cough and pain in her ears States that she tends to get sinusitis and turns into bronchitis States that she can only take a few medications due to her allergies so tonight when she was still having issues she came in States that she had a sinus headache but took 800mg of Ibuprofen prior to arrival Related Data Home Medications Medication Instructions Recorded Confirmed hydrocodone 10 mg-acetaminophen 1 tab PO Q6 PRN pain 30 days #120 01/25/18 03/07/22 325 mg tablet tabs vitamin B complex (B 1 tab PO DAILY Supplement 01/25/18 03/07/22 Complex-Vitamin B12 tablet) cyclobenzaprine 10 mg tablet 10 mg PO TID PRN pain 02/15/18 03/07/22 ascorbic acid (vitamin C) 500 mg 500 mg PO ONCE Supplement 06/07/18 03/07/22 capsule Previous Rx's Medication Instructions Recorded bisoprolol fumarate 5 mg tablet See Rx Instructions .Route 11/24/21 .COMPLEX #90 tabs clonazepam 0.5 mg tablet (Klonopin) 0.5 mg PO BID #60 tabs 05/17/22 benzonatate 100 mg capsule 100 mg PO TID PRN cough #30 caps 06/22/22 erythromycin 500 mg tablet
[2022-06-22 20:34] VITALS: BP 156/80; PULSE 74; RESP 18; TEMP 36.8; O2SAT 98
== END 2022-06-22 20:48 | disposition home or self-care (01) ==
PROVIDERS: Emergency Provider Nurse Practitioner; PCP Emergency Medicine
DX: J01.90 Acute sinusitis, unspecified (principal); R05.1 Acute cough
CPT/HCPCS: 96372; 99212; 99214; G0463

== ENCOUNTER 2022-09-07 17:14 | Emergency (ER) | payer OTHER, SELFPAY ==
[2022-09-07 17:15] VITALS: BP 127/71; PULSE 74; RESP 16; TEMP 36.9; O2SAT 98; BMI 27.1
--- NOTE | 2022-09-07 17:34 | EXP.UTC ---
Discharge Plan Disposition Patient Disposition: Home, Self-Care Condition: Good Prescriptions Prescriptions: New erythromycin ethylsuccinate [E.E.S. 400] 400 mg tablet 400 mg PO Q6H 10 Days Qty: 40 0RF prednisone 10 mg tablet 10 mg PO BID 3 Days Qty: 6 0RF lidocaine HCl [Lidocaine Viscous] 2 % solution 5 ml mucous membrane QID PRN (Reason: pain) Qty: 100 0RF No Action hydrocodone-acetaminophen 10-325 mg tablet 1 tab PO Q6 PRN (Reason: pain) 30 Days Qty: 120 vitamin B complex [B Complex-Vitamin B12] tablet 1 tab PO DAILY cyclobenzaprine 10 mg tablet 10 mg PO TID PRN (Reason: pain) ascorbic acid (vitamin C) 500 mg capsule 500 mg PO ONCE bisoprolol fumarate 5 mg tablet See Rx Instructions .ROUTE .COMPLEX Qty: 90 5RF Dose Instruction: TAKE 1 TABLET BY MOUTH EVERY DAY FOR CARDIAC Rx Instructions: TAKE 1 TABLET BY MOUTH EVERY DAY FOR CARDIAC clonazepam [Klonopin] 0.5 mg tablet 0.5 mg PO BID Qty: 60 0RF erythromycin 500 mg tablet 500 mg PO BID 10 Days Qty: 20 0RF benzonatate 100 mg capsule 100 mg PO TID PRN (Reason: cough) Qty: 30 0RF Referrals Follow up/Referrals: Lucas Ruggiero APRN [Primary Care Provider] - See instructions Activity Restrictions/Add. Instructions Additional Instructions/Restrictions: Drink plenty of fluids. Take tylenol or ibuprofen for pain or fever. Take the medications as directed. Follow up with your regular doctor. GO TO THE ER FOR ANY WORSENING SYMPTOMS Don't start the oral steroids until tomorrow, since you had the shot here today. Clinical Impressions Clinical Impression: Strep throat Instructions Patient Instructions: DI for Strep Throat, Strep Throat Discharge ED [place] [facility] [place] General Stated complaint: SORE THROAT BODY ACHES Mode of Arrival: Ambulatory Source of Information: Patient Limitations: No Limitations Time Seen by Provider: 09/07/22 17:28 Description of Symptoms (Recalled from Triage Doc. by RN): pt presents to [facility] c/o body aches, fever, chills, sore throat x 1 day. HEENT Symptoms (Recalled from RN notes): Yes Resp Symptoms (Recalled from RN notes): Yes Skin Symptoms (Recalled from RN notes): No MS Symptoms (Recalled from RN notes): No Functional Status (Recalled from RN notes): na History of Present Illness Provider Complaint: She c/o sore throat for the past 3 days. Related Data Home Medications Medication Instructions Recorded Confirmed hydrocodone 10 mg-acetaminophen 1 tab PO Q6 PRN pain 30 days #120 01/25/18 03/07/22 325 mg tablet tabs vitamin B complex (B 1 tab PO DAILY Supplement 01/25/18 03/07/22 Complex-Vitamin B12 tablet) cyclobenzaprine 10 mg tablet 10 mg PO TID PRN pain 02/15/18 03/07/22 ascorbic acid (vitamin C) 500 mg 500 mg PO ONCE Supplement 06/07/18 03/07/22 capsule Previous Rx's Medication Instructions Recorded bisoprolol fumarate 5 mg tablet See Rx Instructions .Route 11/24/21 .COMPLEX #90 tabs benzonatate 100 mg capsule 100 mg PO TID PRN cough #30 caps 06/22/22 erythromycin 500 mg tablet 500 mg PO BID 10 days #20 tabs 06/22/22 clonazepam 0.5 mg tablet (Klonopin) 0.5 mg PO BID #60 tabs 08/24/22 erythromycin ethylsuccinate 400 mg 400 mg PO Q6H 10 days #40 tabs 09/07/22 tablet (E.E.S.) lidocaine HCl 2 % mucosal solution 5 ml mucous membrane QID PRN pain 09/07/22 (Lidocaine Viscous) #100 mL prednisone 10 mg tablet 10 mg PO BID 3 days #6 tabs 09/07/22 Allergies Allergy/AdvReac Type Severity Reaction Status Date / Time amoxicillin [AMOXICILLIN] Allergy Unknown Verified 03/07/22 13:59 Penicillins [PENICILLINS] Allergy Unknown Verified 03/07/22 13:59 Worker's Comp Is this a Worker's Comp case?: No Is this an H Worker's Comp?: No Is this a [place] Worker's Comp?: No [facility] Disclaimer: The information contained in this section may have been updated after the patient was seen, as this informatio
[2022-09-07 17:37] LABS: UTC Strep Screen (Rapid) Positive (Negative)
[2022-09-07 18:19] VITALS: BP 127/71; PULSE 74; RESP 16; TEMP 36.9; O2SAT 98
== END 2022-09-07 18:22 | disposition home or self-care (01) ==
PROVIDERS: Emergency Provider Nurse Practitioner Family; PCP Nurse Practitioner Family
DX: J02.0 Streptococcal pharyngitis (principal)
CPT/HCPCS: 87880; 96372; 99212; 99214; G0463

== ENCOUNTER 2023-03-02 17:43 | Emergency (ER) | payer OTHER, SELFPAY ==
[2023-03-02 17:44] VITALS: BP 155/87; PULSE 93; RESP 19; TEMP 37.5; O2SAT 97; BMI 26.5
--- NOTE | 2023-03-02 17:57 | EXP.UTC ---
Discharge Plan Disposition Patient Disposition: Home, Self-Care Condition: Good Prescriptions Prescriptions: New benzonatate [benzonatate] 100 mg capsule 100 mg PO TIDP PRN (Reason: Cough) Qty: 30 0RF cephalexin 500 mg capsule 500 mg PO QID Qty: 40 0RF methylprednisolone 4 mg Tablets,Dose Pack 4 mg PO DIRECTED Qty: 21 0RF No Action hydrocodone-acetaminophen 10-325 mg tablet 1 tab PO Q6 PRN (Reason: pain) 30 Days Qty: 120 vitamin B complex [B Complex-Vitamin B12] tablet 1 tab PO DAILY cyclobenzaprine 10 mg tablet 10 mg PO TID PRN (Reason: pain) ascorbic acid (vitamin C) 500 mg capsule 500 mg PO ONCE bisoprolol fumarate 5 mg tablet See Rx Instructions .ROUTE .COMPLEX Qty: 90 5RF Dose Instruction: TAKE 1 TABLET BY MOUTH EVERY DAY FOR CARDIAC Rx Instructions: TAKE 1 TABLET BY MOUTH EVERY DAY FOR CARDIAC clonazepam [Klonopin] 0.5 mg tablet 0.5 mg PO BID Qty: 60 0RF erythromycin 500 mg tablet 500 mg PO BID 10 Days Qty: 20 0RF benzonatate 100 mg capsule 100 mg PO TID PRN (Reason: cough) Qty: 30 0RF erythromycin ethylsuccinate [E.E.S. 400] 400 mg tablet 400 mg PO Q6H 10 Days Qty: 40 0RF prednisone 10 mg tablet 10 mg PO BID 3 Days Qty: 6 0RF lidocaine HCl [Lidocaine Viscous] 2 % solution 5 ml mucous membrane QID PRN (Reason: pain) Qty: 100 0RF Referrals Follow up/Referrals: Lucas Ruggiero APRN [Primary Care Provider] - See instructions Activity Restrictions/Add. Instructions Additional Instructions/Restrictions: Drink plenty of fluids. Take tylenol or ibuprofen for pain or fever. Take the medications as directed. Follow up with your regular doctor. GO TO THE ER FOR ANY WORSENING SYMPTOMS Clinical Impressions Clinical Impression: Sinusitis, Acute viral syndrome, Otitis media Stand Alone Forms Stand Alone Forms: Work/School Release Instructions Patient Instructions: Sinusitis, DI for Sinusitis Discharge ED Provider: Dao Dolan [facility] General Stated complaint: bilateral ear pain, congestion, h/a Time Seen by Provider: 03/02/23 17:57 History of Present Illness Provider Complaint: She states that for the past 2 days she has had bilateral ear pain, sinus congestion, body aches and a cough. Related Data Home Medications Medication Instructions Recorded Confirmed hydrocodone 10 mg-acetaminophen 1 tab PO Q6 PRN pain 30 days #120 01/25/18 03/07/22 325 mg tablet tabs vitamin B complex (B 1 tab PO DAILY Supplement 01/25/18 03/07/22 Complex-Vitamin B12 tablet) cyclobenzaprine 10 mg tablet 10 mg PO TID PRN pain 02/15/18 03/07/22 ascorbic acid (vitamin C) 500 mg 500 mg PO ONCE Supplement 06/07/18 03/07/22 capsule Previous Rx's Medication Instructions Recorded bisoprolol fumarate 5 mg tablet See Rx Instructions .Route 11/24/21 .COMPLEX #90 tabs benzonatate 100 mg capsule 100 mg PO TID PRN cough #30 caps 06/22/22 erythromycin 500 mg tablet 500 mg PO BID 10 days #20 tabs 06/22/22 clonazepam 0.5 mg tablet (Klonopin) 0.5 mg PO BID #60 tabs 08/24/22 erythromycin ethylsuccinate 400 mg 400 mg PO Q6H 10 days #40 tabs 09/07/22 tablet (E.E.S.) lidocaine HCl 2 % mucosal solution 5 ml mucous membrane QID PRN pain 09/07/22 (Lidocaine Viscous) #100 mL prednisone 10 mg tablet 10 mg PO BID 3 days #6 tabs 09/07/22 benzonatate 100 mg capsule 100 mg PO TIDP PRN Cough #30 caps 03/02/23 cephalexin 500 mg capsule 500 mg PO QID #40 caps 03/02/23 methylprednisolone 4 mg tablets in 4 mg PO DIRECTED #21 tabs 03/02/23 a dose pack Allergies Allergy/AdvReac Type Severity Reaction Status Date / Time amoxicillin [AMOXICILLIN] Allergy Unknown Verified 03/07/22 13:59 Penicillins [PENICILLINS] Allergy Unknown Verified 03/07/22 13:59 [facility] Disclaimer: The information contained in this section may have been updated after the patient was seen, as this information can be updated by other users.
[2023-03-02 18:13] LABS: UTC Influenza A Antigen Negative (Negative); UTC Influenza B Antigen Negative (Negative); UTC Strep Screen (Rapid) Negative (Negative)
[2023-03-02 18:20] VITALS: BP 155/87; PULSE 93; RESP 20; TEMP 37.5; O2SAT 97
== END 2023-03-02 18:33 | disposition home or self-care (01) ==
PROVIDERS: Emergency Provider Nurse Practitioner Family; PCP Nurse Practitioner Family
DX: U07.1 COVID-19 (principal); J01.90 Acute sinusitis, unspecified; H66.93 Otitis media, unspecified, bilateral; R51.9 Headache, unspecified; R05.9 Cough, unspecified; R09.81 Nasal congestion
CPT/HCPCS: 87635; 87804; 87880; 96372; 96374; 99212; 99214; G0463

== ENCOUNTER 2023-05-31 19:27 | Outpatient (CLI) | payer OTHER, SELFPAY ==
[2023-05-31 18:45] LABS: Basophils # 0.1 K/mm3 (0-0.2); Basophils % 0.7 % (0.1-2.0); Eosinophils # 0.3 K/mm3 (0.0-0.4); Eosinophils % 3.3 % (0.1-12.0); Hematocrit 40.9 % (37.0-47.0); Lymphocytes # 3.6 K/mm3 (0.7-4.5); Lymphocytes % 45.1 % (10-50); Mean Corpuscular HGB Conc 34.1 g/dL (31.8-35.4); Mean Corpuscular Hemoglobin 30.9 pg (27.0-31.2); Mean Corpuscular Volume 90.4 fl (81-99); Mean Platelet Volume 8.5 fl (7.4-10.4); Monocytes # 0.5 K/mm3 (0.1-1.0); Monocytes % 5.8 % (1.7-9.3); Neutrophils # 3.7 K/mm3 (1.8-7.8); Neutrophils % 45.3 % (37.0-80.0); Platelet Count 332 K/mm3 (142-424); Red Blood Count 4.52 M/mm3 (4.20-5.40); Red Cell Distribution Width 12.3 % (11.5-17.5); White Blood Count 8.1 K/mm3 (4.8-10.8)
[2023-05-31 19:48] LABS: Chloride 104 mmol/L (98-107); Potassium 4.3 mmoL/L (3.5-5.1); Sodium 137 mmol/L (136-145)
[2023-05-31 19:51] LABS: Alanine Aminotransferase 20 U/L (12-78); Albumin Level 4.4 g/dl (3.5-5.0); Albumin/Globulin Ratio 1.4 (1.1-1.8); Alkaline Phosphatase 82 U/L (38-126); Anion Gap 11.3 mEq/L (5-15); Aspartate Amino Transferase 28 U/L (14-36); Bilirubin,Direct 0.2 mg/dl (0.0-0.4); Bilirubin,Total 0.2 mg/dl (0.2-1.3); Blood Urea Nitrogen 13 mg/dl (7-17); Calcium 9.2 mg/dl (8.4-10.2); Carbon Dioxide 26 mmol/L (22.0-30.0); Cholesterol 263 mg/dl (140-200); Estimated Glomerular Filt Rate 103 ml/min (>60); GFR (African American) 125 ML/MIN (>60); Globulin 3.2 g/dL (1.3-3.2); Glucose 92 mg/dl (74-100); Total Protein,Serum 7.6 g/dl (6.3-8.2); Triglycerides 191 mg/dl (30-150); VLDL Cholesterol 38 mg/dL (0-40)
[2023-05-31 19:52] LABS: Chol/HDL Ratio 4.9 (1-3.5); HDL Cholesterol 54 mg/dl (40-60)
[2023-05-31 20:03] LABS: Direct LDL Cholesterol 134.12 mg/dL (100-129)
[2023-05-31 20:23] LABS: Thyroid Stimulating Hormone 1.66 uIU/mL (0.465-4.68)
== END 2023-05-31 23:59 ==
LOC: LAB.DROPOF 19:28
PROVIDERS: PCP Nurse Practitioner Family; Visit Provider Nurse Practitioner Family
DX: E78.5 Hyperlipidemia, unspecified (principal); R10.11 Right upper quadrant pain; Z79.899 Other long term (current) drug therapy
CPT/HCPCS: 80053; 80061; 80076; 82306; 84443; 85025

== ENCOUNTER 2023-11-02 09:12 | Day surgery (SDC) | payer OTHER, SELFPAY ==
--- NOTE | 2023-10-18 15:43 | SUR.PREOP ---
Called to confirm appointment. No answer. Left voicemail with callback number
[2023-11-02] VITALS (7 sets, daily range): BP systolic 116–147; BP diastolic 60–89; PULSE 59–81; RESP 16–18; TEMP 37.1; O2SAT 97–987; BMI 26.4
--- NOTE | 2023-11-02 10:45 | P.PNANES_ITS ---
[facility] Disclaimer: The information contained in this section may have been updated after the patient was seen, as this information can be updated by other users. Medical History (Updated 11/02/23 @ 09:39 by Juan Manuel Archuleta RN) History of melanoma History of breast cancer History of palpitations in adulthood Surgical History (Updated 11/02/23 @ 09:41 by Juan Manuel Archuleta RN) History of spinal fusion History of section History of lithotripsy History of lymph node excision History of bilateral mastectomy Family History (Updated 11/02/23 @ 09:42 by Juan Manuel Archuleta RN) Other Family history of cancer Family history of heart disease Social History (Updated 11/02/23 @ 09:44 by Juan Manuel Archuleta RN) Smoking Status: Never smoker alcohol intake: never substance use type: denies use current occupational status: employed Travel in the last 8 weeks: None housing: house [facility] Anesthesia Checklist Patient Identification Patient Identification: Arm Band Structural Data Admitted From: Home Planned Operative Procedure/s: Colonoscopy Consent for Planned Operative Procedure(s) Verified: Yes Verified Documents: Surgical Consent and History and Physical NPO Status Verified Time NPO: 00:00 Additional verifications Anesthesia Reactions: No Airway Assessment Mallampati Score:: Class II C-Spine Mobility Assessed: Yes TMJ Mobility Assessed: Yes Dentition: Good Dentition Neurological Assessment Level of Consciousness: Awake, Alert and Appropriate Anesthesia Plan Anesthesia Risk discussed: Yes Anesthesia Plan: Verified ASA Class: II Anesthesia Type: MAC
--- NOTE | 2023-11-02 11:13 | HMH.SCOPE ---
Procedure: Date: 11/02/23 Patient Date of :: 1965 Procedure Performed:: Colonoscopy Indications:: The patient is a 58-year-old who presents for screening colonoscopy. There is a family history of colon cancer in a first-degree relative (father). This is the patient's first colonoscopy. Patient has a prior history of breast cancer. Performing Provider:: Mando Saul MD Referring Provider:: Tran Villanueva APRN Sedation:: See RN records Procedure:: After placing the patient in the left lateral decubitus position, the colonoscopy was gently inserted into the rectum and under direct visualization advanced to the cecum which was identified by transillumination in the right lower quadrant, identification of the ileocecal valve, appendiceal orifice, and cecal strap. Color, texture, mucosa, and anatomy of the colon were carefully examined with the scope. Findings:: The quality of the bowel preparation was excellent. The procedure was performed without difficulty. The patient tolerated the procedure well. There were scattered diverticula in the sigmoid colon. The remaining colon appeared normal. On retroflexion view of the rectum small internal hemorrhoids were seen. Impression: Sigmoid diverticulosis Recommendations:: Higher fiber diet Repeat colonoscopy in 5 years Complications:: None Estimated blood obtained (mL): 0 Colonoscopy Component Colonoscopy Component Was a colonoscopy performed during today's procedure?: Yes Recommended follow up colonoscopy of at least 10 years?: Yes
== END 2023-11-02 11:50 | disposition home or self-care (01) ==
PROVIDERS: PCP Nurse Practitioner Family; Visit Provider Internal Medicine
PROC: (CPT 45378; principal; 2023-11-02 10:30)
DX: Z12.11 Encounter for screening for malignant neoplasm of colon (principal); Z80.0 Family history of malignant neoplasm of digestive organs; K57.30 Diverticulosis of large intestine without perforation or abscess without bleeding
CPT/HCPCS: 45378

== ENCOUNTER 2024-03-05 10:27 | Outpatient (CLI) | payer OTHER, SELFPAY ==
[2024-03-05 11:00] LABS: Basophils # 0.1 K/mm3 (0-0.2); Basophils % 1.1 % (0.1-2.0); Eosinophils # 0.4 K/mm3 (0.0-0.4); Eosinophils % 5.9 % (0.1-12.0); Hematocrit 40.7 % (37.0-47.0); Hemoglobin 13.6 g/dL (12.2-16.2); Lymphocytes # 3.3 K/mm3 (0.7-4.5); Lymphocytes % 44.9 % (10-50); Mean Corpuscular HGB Conc 33.3 g/dL (31.8-35.4); Mean Corpuscular Hemoglobin 30.2 pg (27.0-31.2); Mean Corpuscular Volume 90.7 fl (81-99); Monocytes # 0.4 K/mm3 (0.1-1.0); Monocytes % 5.6 % (1.7-9.3); Neutrophils # 3.1 K/mm3 (1.8-7.8); Neutrophils % 42.5 % (37.0-80.0); Platelet Count 288 K/mm3 (142-424); Red Blood Count 4.48 M/mm3 (4.20-5.40); Red Cell Distribution Width 13.1 % (11.5-17.5); White Blood Count 7.3 K/mm3 (4.8-10.8)
[2024-03-05 11:23] LABS: Alanine Aminotransferase 36 U/L (12-78); Albumin Level 4.2 g/dl (3.5-5.0); Alkaline Phosphatase 91 U/L (38-126); Anion Gap 12.2 mEq/L (5-15); Aspartate Amino Transferase 38 U/L (14-36); Bilirubin,Direct 0.3 mg/dl (0.0-0.4); Bilirubin,Indirect 0.3 mg/dL (0.0-0.9); Bilirubin,Total 0.6 mg/dl (0.2-1.3); Bilirubin,Unconjugated 0.3 mg/dL (0.0-1.1); Blood Urea Nitrogen 11 mg/dl (7-17); Calcium 9.5 mg/dl (8.4-10.2); Carbon Dioxide 26 mmol/L (22.0-30.0); Chloride 105 mmol/L (98-107); Chol/HDL Ratio 3.2 (1-3.5); Cholesterol 250 mg/dl (140-200); Estimated Glomerular Filt Rate 86 ml/min (>60); GFR (African American) 104 ML/MIN (>60); Glucose 97 mg/dl (74-100); HDL Cholesterol 79 mg/dl (40-60); Magnesium 1.8 mg/dl (1.6-2.3); Potassium 4.2 mmoL/L (3.5-5.1); Sodium 139 mmol/L (136-145); Triglycerides 130 mg/dl (30-150); VLDL Cholesterol 26 mg/dL (0-40)
[2024-03-05 11:34] LABS: Direct LDL Cholesterol 147.67 mg/dL (100-129)
[2024-03-05 11:39] LABS: Free T4 (Free Thyroxine) 0.96 ng/dl (0.78-2.19)
[2024-03-05 11:53] LABS: Thyroid Stimulating Hormone 2.61 uIU/mL (0.465-4.68)
== END 2024-03-05 23:59 | disposition home or self-care (01) ==
LOC: LAB 10:27
PROVIDERS: PCP Nurse Practitioner Family; Visit Provider Physician Assistant
DX: E78.2 Mixed hyperlipidemia (principal); R00.1 Bradycardia, unspecified; Z86.79 Personal history of other diseases of the circulatory system
CPT/HCPCS: 36415; 80048; 80061; 80076; 83735; 84439; 84443; 85025